=== PATIENT | male | born 1945 | race Caucasian/White ===

== ENCOUNTER 2019-02-28 14:39 | Emergency (ER) | payer MEDICARE ==
[~2019-02-28] VITALS: Ht 185.4 cm; Wt 83.9 kg
[2019-02-28] MEDS ORDERED: Vistaril25 MG PO (16:57)
== END 2019-02-28 17:04 | disposition home or self-care (01) ==
LOC: ER 14:39
DX: I42.1 Obstructive hypertrophic cardiomyopathy (principal); F41.9 Anxiety disorder, unspecified; F17.200 Nicotine dependence, unspecified, uncomplicated
CPT/HCPCS: 93005; 93010; 99285-25